=== PATIENT | male | born 1990 | race African-American/Black ===

== ENCOUNTER 2019-03-30 13:37 | Emergency (ER) | payer SELFPAY ==
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
[2019-03-30 13:42] VITALS: BP 102/58; PULSE 84; TEMP 99.7; BMI 26.4
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
== END 2019-03-30 14:26 | disposition home or self-care (01) ==
LOC: JERFT 13:37
PROC: 2W3JX1Z Immobilization of Right Finger using Splint (ICD-10-PCS; principal; 2019-03-30)
DX: M84.444A Pathological fracture, right finger(s), initial encounter for fracture (principal); Y04.2XXA Assault by strike against or bumped into by another person, initial encounter; Y93.89 Activity, other specified; Y92.89 Other specified places as the place of occurrence of the external cause; Y99.8 Other external cause status; Y07.9 Unspecified perpetrator of maltreatment and neglect
CPT/HCPCS: 73130-TC-RT-FY; 99282-25